=== PATIENT | female | born 1950 | race Caucasian/White ===

== ENCOUNTER 2017-01-09 11:55 | Inpatient (IN) | payer MEDICARE ==
[~2017-01-09] VITALS: Ht 152.4 cm; Wt 107.1 kg
--- NOTE | ~2017-01-09 | DS ---
PATIENT'S NAME: LG CALDERÓN [facility] AGE: 66 Y [address] ROOM: [address] [place], [place] [address] LOCATION: [facility] ADMIT DATE: 01/09/2017 Discharge Summary DISCHARGE DATE: 01/11/2017 FAMILY PHYSICIAN: Pedro Stephen MD ATTENDING PHYSICIAN: Pedro Stephen PRINCIPAL DIAGNOSIS: Left lower lobe pneumonia. SECONDARY DIAGNOSES: 1. Viral pharyngitis. 2. Essential hypertension. 3. Hyperlipidemia. 4. Hypothyroidism. 5. Morbid obesity. 6. Obstructive sleep apnea, on CPAP. HISTORY OF PRESENT ILLNESS: Lg Calderón, a 66-year-old female, presented to [facility] on 01/09/2017 for pleuritic chest pain and shortness of breath. Her history was complicated by a recent left foot cellulitis, diagnosed on 01/04/2017 in clinic, for which she was taking Cefadroxil. Vitals at the clinic were, a blood pressure of 150/86, heart rate of 102, respirations of 28, temperature of 101.4 degrees Fahrenheit, and oxygen saturation of 93%. With her recent infection with subsequent bedrest, a CT with PE protocol was ordered. The outpatient CT ruled out PE, but showed beginning signs of left lower lobe infiltrate and atelectasis, suggesting pneumonia. HOSPITAL COURSE: She was admitted to [facility] and started on IV levofloxacin. Her temperature and symptoms improved. On hospital day #2, she complained of dysphagia and odynophagia, which improved significantly after a dose of prednisone. On hospital day #2, her presenting symptoms resolved, and she was discharged to home. HOME MEDICATIONS: 1. Acetaminophen 1200 mg every night at bedtime for arthritis. 2. Cefadroxil 1000 mg twice daily for 10 days, started on 01/04/2017, for left foot cellulitis. 3. Estradiol 0.5 mg. 4. Hydralazine 50 mg twice daily. 5. Levothyroxine 100 mcg. 6. Metoprolol 50 mg. 7. Quetiapine fumarate 150 mg at bedtime. 8. Tramadol 100 mg at bedtime. 9. A 50 mg of tramadol as needed for pain. 10. Ibuprofen 800 mg as needed for pain. PATIENT'S NAME: LG CALDERÓN [facility] AGE: 66 Y [address] ROOM: [place] [address] LOCATION: [facility] ADMIT DATE: 01/09/2017 Discharge Summary DISCHARGE DATE: 01/11/2017 FAMILY PHYSICIAN: Pedro Stephen MD ATTENDING PHYSICIAN: Pedro Stephen 11. Medrol Dosepak. 12. Levofloxacin 750 mg once daily, 5 tablets for a total of 7 days. CONDITION: Good. DISPOSITION: Lg was discharged home with followup with her PCP, Dr. Pedro Stephen, in 7 to 10 days. Honestly, her symptoms are mostly caused by a virus, but she was sent home on antibiotics just in case. EPHRAIM LIZAMA, MEDICAL STUDENT FOR PEDRO STEPHEN MD AT/modl /[id number] d: 01/11/17901 t: 01/30/17 1449, DISCHARGE SUMMARY
[~2017-01-09 11:55] MED LIST: ADVIL200 MG PO; APRESOLINE50 MG PO; ARTHRITIS PAIN650 M1 PO; CEFTIN500 MG PO; DELTASONE20 MG PO; ESTRACE0.5 MG PO; LEVOTHROID (S125 MCG PO; SEROQUEL100 MG PO; TOPROL XL 5050 MG PO; ULTRAM50 MG PO
--- NOTE | 2017-01-09 13:42 | NUR ---
ADMITTED FROM RADIOLOGY PER WHEEL CHAIR. PT STATES SHE WAS ADMITTED FOR A POSSIBLE PULMONARY EMBOLISM IN THE END OF SEPTEMBER AND HAS NOT FELT GOOD SINCE THEN. SHE STATES SHE HAD A CT TODAY FOR R/O PE AND WAS TOLD SHE HAS PNEUMONIA. PT STATES SHE HAS BEEN SHORT OF BREATH WITH AND WITHOUT ACTIVITY, HAS HAD A HARSH COUGH WITH NO SPUTUM. PT STATES SHE HAS HAD A POOR APPETITE BUT HAS BEEN EATING BECAUSE SHE KNOW SHE HAS TO. IS ASKING FOR SOME BOTTLED WATER TO DRINK, INFORMED HER THAT WE DO NOT HAVE ANY ORDERS FROM A PHYSICIAN YET. PT ORIENTED TO ROOM, SURROUNDINGS AND PLAN OF CARE.
[2017-01-09] MEDS ORDERED: TURMERIC500 MG PO (13:57)
[2017-01-09] MEDS ORDERED: TRAMADOL HCL50 MG PO (14:00)
[2017-01-09] MEDS ORDERED: DURICEF (NON-500 MG PO (14:00)
[2017-01-09] MEDS ORDERED: ATIVAN 0.5MG0.5 MG PO (14:01)
--- NOTE | 2017-01-09 16:15 | NUR ---
Significant Event: A/O. VSS on RA. C/O chronic shoulder pain for which she takes ultram for. SOB with activity. Levaquin and D5 1/2 NS infusing to L) upper arm IV. Up with SBA. CT neg for PE. Follow up:
[2017-01-10 06:05] LABS: BASOPHIL % 0.3 %; EOSINOPHIL % 0.5 %; HEMATOCRIT 31.1 % (33.0-46.0); HEMOGLOBIN 10.3 g/dL (10.0-15.0); IMMATURE GRANULOCYTE % 0.5 %; LYMPHOCYTE # 0.5 K/uL (0.8-4.0); LYMPHOCYTE % 13.7 %; MCH 29.3 pg (27.0-34.0); MCHC 33.1 gm/dL (32.0-36.5); MCV 88.6 fl (83.0-98.0); MONOCYTE # 0.3 K/uL (0.0-1.0); MONOCYTE % 7.1 %; MPV 9.8 fl (9.4-12.4); NEUTROPHIL # (ANC) 2.9 K/uL (1.8-7.8); NEUTROPHIL % 77.9 %; NRBC % 0 /100WBC (0-0.00); PLATELET COUNT 181 K/uL (150-450); RBC 3.51 M/uL (3.50-5.50); RDW-CV 15.3 % (11.9-14.6); WBC 3.7 K/uL (4.0-11.0)
[2017-01-10 06:17] LABS: ANION GAP 10.7 (10.0-19.0); BLOOD UREA NITROGEN 18 mg/dL (6-24); CALCIUM 8.5 mg/dL (8.5-10.5); CHLORIDE 105 mMol/L (96-110); CO2 22 mMol/L (22-32); CREATININE 0.7 mg/dL (0.5-1.1); ESTIMATED GFR (MDRD EQUATION) > 60; POTASSIUM 3.7 mMol/L (3.7-5.1); SODIUM 134 mMol/L (135-145)
--- NOTE | 2017-01-10 06:50 | NUR ---
Significant Event: Patient is alert/oriented x3. Has been afebrile throughout the night. Other vital signs are stable. Continues on room air with O2 sats mid 90's. Wears CPAP on room air at night. Has occasional dry cough, lung sounds have been clear/diminished all night. Patient complained of restlessness throughout the night, despite Seroquel, Tramadol, Tylenol, and Ativan administration. Patient stated "I wanted the doctor to give me something stronger for sleep". Offered patient aromatherapy, but she refused. Around 0500, patient's IV began to leak. Attempted to start new IV, but without any success. Patient did have a very promising site on her hand, but she stated "if you put an IV on my hands, I'll just take it right out.". Explained to patient the need for IV for IV fluids and IV antibiotics but she continued to refuse having an IV inserted on her hand, even if unable to find another location for it. Follow up: Continue to monitor per plan of care.
[2017-01-10 12:58] LABS: BILIRUBIN URINE NEGATIVE (NEGATIVE); BLOOD URINE 10 /UL (NEGATIVE); COLOR URINE YELLOW (YELLOW); GLUCOSE URINE NEGATIVE (NEGATIVE); KETONE URINE NEGATIVE (NEGATIVE); LEUKOCYTES URINE 25 /UL (NEGATIVE); NITRITE URINE NEGATIVE (NEGATIVE); PROTEIN URINE 100 mg/dL (NEGATIVE); TURBIDITY URINE CLEAR (CLEAR); UROBILINOGEN URINE 1 mg/dL (NORMAL)
[2017-01-10 13:04] LABS: BACTERIA URINE RARE (NEGATIVE); RBC URINE RARE #/HPF (NEGATIVE); WBC URINE RARE #/HPF (NEGATIVE)
--- NOTE | 2017-01-10 16:13 | NUR ---
Significant Event: A/O. VSS on RA. C/O "lump in throat" and states "feels like throat is closing". No stridor or difficulty breathing unless shes walking and becomes SOB. Benedryl, solumedrol, and flonase started. Speech consult for tomorrow. Patient states that at this time her throat feels better. Follow up: cont plan of care
--- NOTE | 2017-01-11 07:19 | NUR ---
Significant Event: Patient is alert/oriented x3. Vital signs stable. Continues on room air. IV Solu-medrol and IV Benadryl given last night for throat discomfort, patient reported relief. Trazodone given last night, patient did sleep better last night. Continues on IV Levaquin and D5 1/2 NS at 75 mL/hr. Follow up: Continue to monitor per plan of care.
[2017-01-11] MEDS ORDERED: FLONASE 50 MCG/16 GM NOSE (12:28)
[2017-01-11] MEDS ORDERED: DESYREL100 MG PO (12:40)
[2017-01-11] MEDS ORDERED: MEDROL4 M1 (12:42)
[2017-01-11] MEDS ORDERED: LEVAQUIN 750 M750 MG PO (12:42)
--- NOTE | 2017-01-11 13:53 | NUR ---
Introduced self and care management services to patient. 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 Lives in [place] with spouse. Going home today, denies concerns about going home on discharge.
== END 2017-01-11 14:43 | disposition disaster alternative care site (69) | DRG 194 ==
LOC: GRAD 11:55 → GPCU 12:50
PROVIDERS: ADMIT Obstetrics & Gynecology Obstetrics
DX: J18.9 Pneumonia, unspecified organism (principal); L03.116 Cellulitis of left lower limb; I10 Essential (primary) hypertension; Z68.42 Body mass index [BMI] 45.0-49.9, adult; J98.11 Atelectasis; J02.8 Acute pharyngitis due to other specified organisms; B97.89 Other viral agents as the cause of diseases classified elsewhere; G47.33 Obstructive sleep apnea (adult) (pediatric); E78.5 Hyperlipidemia, unspecified; E03.9 Hypothyroidism, unspecified; E66.01 Morbid (severe) obesity due to excess calories; B96.89 Other specified bacterial agents as the cause of diseases classified elsewhere
CPT/HCPCS: J1200; J1650; J1956; J2930; Q9967

== ENCOUNTER 2017-03-30 08:39 | Inpatient (IN) | payer MEDICARE ==
[~2017-03-30] VITALS: Ht 152.4 cm; Wt 99.8 kg
--- NOTE | ~2017-03-30 | CON ---
PATIENT'S NAME: LG DON [facility] AGE: 66 Y [address] ROOM: [address] [place], [place] [address] LOCATION: [facility] ADMIT DATE: 03/30/2017 Consultation DISCHARGE DATE: FAMILY PHYSICIAN: Paramjit Fermin MD ATTENDING PHYSICIAN: Paramjit Fermin DATE OF CONSULTATION: 03/30/2017 REFERRING PHYSICIAN: ARIELLE BARRAZA MD HISTORY OF PRESENT ILLNESS: Dr. Fermin has requested that I provide an inpatient consultation on this 66-year-old female, whom he is admitting from the emergency room. I have been asked to evaluate her left knee. Her past orthopedic history is significant for having undergone a primary left total knee arthroplasty with Dr. Tono Melendez approximately one decade ago. Concerns have been raised in the emergency room regarding the potential for a periprosthetic infection of the left knee. Dr. Fermin has asked me to aspirate the knee and to determine the source of the patient's knee discomfort. The patient has been reasonably pleased with the outcome of her left knee replacement over the past decade. She states that her left knee started "acting up" intermittently approximately 1 year ago. These intermittent flare- ups have typically responded favorably to ice, rest, elevation, and ibuprofen. She has been experiencing intermittent idiopathic fevers over the last 6 months. Difficulties commenced in September. At that time, she was hospitalized overnight after an elevated D-dimer was found. Workup for DVT and pulmonary embolism was negative. She was treated for pneumonia in December (admitted for intravenous antibiotics). She was treated with oral antibiotics (Augmentin) for a putative sinus infection in February. She has been experiencing vague sense of fatigue over the last 6 months. She has unintentionally lost almost 50 pounds over the last 6 months. She states that she weighed 278 pounds at [place] and 230 pounds recently. She had transient right upper quadrant discomfort a few months ago, which felt like a "strained rib." She states that she twisted her knee a few days ago well exiting a vehicle. There was no associated fall. Her knee felt like it was "throbbing" before she went to bed last night. Her knee pain was exquisite this morning at 5 a.m. when she got up to go to the bathroom. She states that her knee "hurt like thunder." In the emergency room, she has been found to be pancytopenic. Erythrocyte sedimentation rate and C-reactive protein levels have been noted to be PATIENT'S NAME: LG DON [facility] AGE: 66 Y [address] ROOM: [address] [place] [id number] LOCATION: [facility] ADMIT DATE: 03/30/2017 Consultation DISCHARGE DATE: FAMILY PHYSICIAN: Paramjit Fermin MD ATTENDING PHYSICIAN: Paramjit Fermin markedly elevated. Allergies, medications, and past surgical history are otherwise as specified on her chart. PHYSICAL EXAMINATION: GENERAL: She is alert, oriented, and in no distress. RESPIRATIONS: Regular and nonlabored. EXTREMITIES: Left knee demonstrates a large effusion. There is no erythema or abnormal warmth at the left knee, but there is significant generalized tenderness at the left knee. There is a well-healed midline longitudinal scar at the left knee. There is 5 mm of medial collateral ligament laxity. There is 4 mm of lateral collateral ligament laxity. The knee hyperextends to approximately 12 degrees. Flexion of the left knee is limited to 120 degrees by pain. There is a 30-degree extensor lag at the left knee. There is markedly increased anteroposterior translation of the left knee and a grade 2 posterior drawer. RADIOGRAPHS: Left knee radiographs demonstrate significant anterior subluxation of the tibia with respect to the femur. There is no fracture. There is no lytic lesion. There is a well-fixed posterior cruciate ligament retaining total knee arthroplasty. IMPRESSION: Potential periprosthetic infection of the left knee. Left knee ligamentous insufficiency, status post total knee arthroplasty. Six months history of lethargy, fatigue, intermittent idiopathic fevers, and unintentional weight loss (potential occult malignancy). RECOMMENDATIONS: I recommended aspiration of the knee. I strongly suspected septic arthritis prior to aspirate the knee. After aspirating the knee, however, it would appear that the patient has an acute hemarthrosis associated with her chronic left knee ligamentous laxity. It is the fact that she is thrombocytopenic as predisposed her to hemorrhaging acutely into the knee. There is an outside chance that she has septic arthritis as well. Cultures are pending. We will commence empiric antibiotics. I have recommended a knee immobilizer. The knee may need to be revised due to its ligamentous laxity at a later date. However, the patient needs a complete workup for her pancytopenia and unintentional weight loss. It is conceivable that she has an occult hematologic malignancy. I have ordered a serum protein electrophoresis. I have expressed my concerns regarding the potential for an underlying systemic illness (possible hematologic malignancy) with Dr. Fermin. I PATIENT'S NAME: LG DON [facility] AGE: 66 Y [address] ROOM: [address] [address] LOCATION: [facility] ADMIT DATE: 03/30/2017 Consultation DISCHARGE DATE: FAMILY PHYSICIAN: Paramjit Fermin MD ATTENDING PHYSICIAN: Paramjit Fermin will follow the patient along in the hospital. No surgery is planned on the left knee presently. I informed the patient and her that I was concerned regarding the potential for an occult malignancy as well. MD FLAVIO VILLAW/modl /[id number] CC: Paramjit Fermin MD d: 03/31/17 0257 t: 04/07/17 1744, CONSULTATION REPORT
--- NOTE | ~2017-03-30 | DS ---
PATIENT'S NAME: LG DON [facility] AGE: 66 Y [address] ROOM: [address] [place], [place] [address] LOCATION: [facility] ADMIT DATE: 03/30/2017 Discharge Summary DISCHARGE DATE: 04/07/2017 FAMILY PHYSICIAN: Pedro Stephen MD ATTENDING PHYSICIAN: Pedro Stephen DISCHARGE DIAGNOSES: 1. ESBL E. coli urinary tract infection with 7 days of IV Invanz or ertapenem daily. 2. Diffuse pancytopenia for which she had a bone marrow biopsy and early prelim suggests Waldenstrom macroglobulinemia, which is a type of B-cell lymphoma. 3. Presumed diastolic congestive heart failure acute. 4. Morbid obesity. 5. Chronic fatigue, which is probably secondary to her pancytopenia and etiology behind that. 6. Obstructive sleep apnea on CPAP. 7. Hypothyroidism for which she was mildly still hypothyroid and we had to adjust her dose. 8. Hypertension, which has been well controlled. 9. History of depression and anxiety disorders that are well controlled on her current medication regimen. HISTORY OF PRESENT ILLNESS: The patient is an elderly 66-year-old female, who just really has not felt well over about the last 6 to 7 months. She was hospitalized back in December. She had an elevated D-dimer. Had a CT PE protocol, which did suggest a small pneumonia and we admitted her and treated her at that time. She had not been feeling well for a while prior to that and she states she has never really felt fine since. She has been treated for a couple of sinus infections in the meantime also, but honestly I think they were somewhat of a soft call. She then had a history of prior to admission of having twisted her knee when she was standing up out of her car, but she said it really did not feel too bad. The morning of admission, when she woke up, she had severe pain and swelling of the knee. There was concern about a possible septic joint, so she went ahead and we obtained blood cultures. Dr. Meza aspirated her left knee and it really just showed more of a traumatic bloody effusion suggestive of hemarthrosis. She does have a fair amount of knee laxity from her previous total knee replacement, so he wanted the patient to have a knee brace on whenever weightbearing. From the standpoint of her knee, she has done well. We went ahead and admitted the patient due to her fevers and fatigue and to rule out a septic arthritis. The patient was initially started on Ancef. We obtained blood and urine cultures. Her urine culture grew out two E. coli organisms, one of which was ESBL. She was started on IV ertapenem at that time, which is Invanz 1 g IV daily and she has received a total of 7 days. For the most part, her fevers have gone away, PATIENT'S NAME: LG DON [facility] AGE: 66 Y [address] ROOM: [address] [address] LOCATION: [facility] ADMIT DATE: 03/30/2017 Discharge Summary DISCHARGE DATE: 04/07/2017 FAMILY PHYSICIAN: Pedro Stephen MD ATTENDING PHYSICIAN: Pedro Stephen although she has had a couple of low-grade fevers. She did have repeat blood and urine cultures and they were all negative. Her blood cultures were negative initially also. Due to her pancytopenia, we went ahead and did a workup, which included a bone marrow biopsy. Preliminary results do suggest some Waldenstrom macroglobulinemia, which is being further evaluated by pathology. She also had a workup for the intermittent fevers. Besides her culture, she did have initially transthoracic echo, which was essentially normal. Then with her next spike which was on a Wednesday, we did go ahead and set her up and on Wednesday, 04/05, she had a MAXIMO and that was also the day she had the bone marrow biopsy. Since that time, she has continued to make progress and is feeling better and better. She still feels chronically tired, but overall feels better. She did have a low-grade temperature on the night prior to discharge, but her blood counts have remained stable and she overall is feeling better and she has completed her 7-day course and has had negative repeat cultures. Her low-grade fevers could be potentially related to her pancytopenia and oncologic problem. She does wish to go home. We will go ahead and plan on dismissing her to home with followup with me next week for repeat CBC, BMP, CRP, and BNP. We will have them check with Dr. Carrillo when he wants her to follow up with Oncology for discussion of the finals of the bone marrow report. DISCHARGE MEDICATIONS: 1. Acetaminophen 650 mg every 4 to 6 hours as needed. 2. Estradiol 0.5 mg daily at bedtime. 3. Fluticasone 2 squirts each nostril daily. 4. A new medicine is furosemide 40 mg daily p.o. q.a.m. for more of a presumed diastolic dysfunction with an elevated proBNP. Her systolic function is normal on echo. 5. She is also on hydralazine 50 mg twice daily. 6. Ibuprofen 800 mg in the mornings. 7. We increased her levothyroxine from 100 mcg to 125 mcg due to mildly elevated TSH. 8. She continues on her metoprolol-XL 50 mg daily. 9. Her Seroquel 150 mg daily. 10. Tramadol 50 mg 2, three times a day as needed. 11. Trazodone 50 mg at bedtime as needed. 12. Lorazepam 0.5 mg t.i.d. p.r.n. for anxiety. As mentioned, follow up is with me in about 5 to 7 days and Oncology per Dr. Carrillo's instructions. PEDRO STEPHEN MD PATIENT'S NAME: LG DON [facility] AGE: 66 Y [address] ROOM: [place] [address] LOCATION: [facility] ADMIT DATE: 03/30/2017 Discharge Summary DISCHARGE DATE: 04/07/2017 FAMILY PHYSICIAN: Pedro Stephen MD ATTENDING PHYSICIAN: Pedro Stephen/miguel a /[id number] d: 04/08/17 0022 t: 04/28/17 1116, DISCHARGE SUMMARY
--- NOTE | ~2017-03-30 | ENPV ---
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 Procedure Type of Study: Veins:Lower Extremities DVT Study, Lower Extremity Left. Indications for Study:Pain in Limb and Swelling of Limb. Patient Status:STAT. Study Location:ER. Technical Quality:Adequate visualization. Velocities are measured in cm/s ; Diameters are measured in cm Right Lower Extremities DVT Study Measurements Right 2D and Doppler Measurements + + + + +------+------+ + !Location !Visualized!Compressibility!Thrombosis!Signal!Reflux!Reflux ! ! ! ! ! ! ! !(sec) ! + + + + +------+------+ + !Common !Yes !Yes !None !Phasic!No ! ! !Femoral ! ! ! ! ! ! ! + + + + +------+------+ + Left Lower Extremities DVT Study Measurements Left 2D and Doppler Measurements + + + + +------+------+ + !Location !Visualized!Compressibility!Thrombosis!Signal!Reflux!Reflux ! ! ! ! ! ! ! !(sec) ! + + + + +------+------+ + !GSV Thigh !Yes !Yes !None !Phasic!No ! ! + + + + +------+------+ + !Common !Yes !Yes !None !Phasic!No ! ! !Femoral ! ! ! ! ! ! ! + + + + +------+------+ + !Prox !Yes !Yes !None !Phasic!No ! ! !Femoral ! ! ! ! ! ! ! + + + + +------+------+ + !Mid Femoral!Yes !Yes !None !Phasic!No ! ! + + + + +------+------+ + !Dist !Yes !Yes !None !Phasic!No ! ! !Femoral ! ! ! ! ! ! ! + + + + +------+------+ + !Popliteal !Yes !Yes !None !Phasic!No ! ! + + + + +------+------+ + !Gastroc !Yes !Yes !None !Phasic!No ! ! + + + + +------+------+ + !PTV !Yes !Yes !None !Phasic!No ! ! + + + + +------+------+ + !Peroneal !Yes !Yes !None !Phasic!No ! ! + + + + +------+------+ + Signature dtt: JUAN CRAIN dtricardo: 03/30/17 0952 Physician Self Edit
--- NOTE | ~2017-03-30 | HP ---
PATIENT'S NAME: LG DON [facility] AGE: 66 Y [address] ROOM: [address] [place], [place] [address] LOCATION: [facility] ADMIT DATE: 03/30/2017 History & Physical DISCHARGE DATE: FAMILY PHYSICIAN: Paramjit Fermin MD ATTENDING PHYSICIAN: Paramjit Fermin DATE OF SERVICE: CHIEF COMPLAINT: Acute onset of severe left knee pain. HISTORY OF PRESENT ILLNESS: The patient is a 66-year-old female, who is well known to me. She has actually had kind of a tough course and has really not felt well over the last 6 to 7 months. Just feeling fatigued. She kind of had a chronic hacky cough. She was hospitalized recently I think back in December and had a CT scan PE protocol, which did show a very small pneumonia which was treated. She states she unfortunately has not continued to feel well since that time. She was even feeling poorly ahead of that time. She does complain of a chronic hacky cough and just feeling real tired and fatigued. On , she was getting out of the car and states that she did not really have her legs squared upright and when she got out, she twisted her left knee and it has been a little bit sore ever since that time. When she woke up this morning, though she had severe left knee pain and it felt like she could not even hardly walk on it. She called Dr. Meza's office and was actually transported to the emergency room where she was evaluated. She had blood work which showed elevated CRP and sedimentation rate. She had a pancytopenia with a left shift, normal procalcitonin, and mildly elevated lactate. Venous Doppler was negative and CT PE protocol was negative. Dr. Meza will be seeing the patient and evaluating her knee. ALLERGIES: INCLUDE: DEMEROL, ERYTHROMYCIN, MORPHINE, PERCODAN, AND ZITHROMAX. CURRENT MEDICATIONS: Include: 1. Acetaminophen 650, 2 tablets at bedtime. 2. Advil 200 mg 4 tablets daily. 3. She just recently finished up Augmentin 875 b.i.d. for 10 days for sinus infection. 4. She is on Asmanex 100 mcg 2 puffs twice daily. 5. Estrace 0.5 mg daily. 6. Fluticasone 2 squirts each nostril daily. 7. Hydralazine 50 mg b.i.d. 8. Levothyroxine 100 mcg daily. PATIENT'S NAME: LG DON [facility] AGE: 66 Y [address] ROOM: [address] [place], [place] [address] LOCATION: [facility] ADMIT DATE: 03/30/2017 History & Physical DISCHARGE DATE: FAMILY PHYSICIAN: Paramjit Fermin MD ATTENDING PHYSICIAN: Paramjit Fermin 9. Lorazepam 0.5 mg t.i.d. p.r.n. 10. Metoprolol succinate 50 mg daily. 11. Seroquel 100 mg 1-1/2 tablets at bedtime. 12. Tramadol 50 mg, 2 tablets q.i.d. p.r.n. PAST MEDICAL HISTORY: Chronic health problems include: 1. History of asthma. 2. Hypertension. 3. Hyperlipidemia, which is well controlled off and is not on medications. 4. Hypothyroidism. 5. Morbid obesity. 6. Obstructive sleep apnea, on CPAP. 7. Postmenopausal status. PAST SURGICAL HISTORY: Principal procedures: 1. The patient has had an adenoidectomy in 1963. 2. Appendectomy in 1972. 3. Bladder suspension in 1989. 4. Left breast biopsy on 11/16/1996 and a right breast biopsy on 10/04/2000, 06/18/2014. 5. She has had a carpal tunnel done on both the left and right hand. 6. She has had cataract surgery before. 7. Cholecystectomy in 1997. 8. She had previous DEXA scan. 9. She had a hysterectomy in 1989. 10. Left knee replacement in 2005, right knee replacement in 2006, and prior to that, she has had previous arthroscopic procedures done on her knees by Dr. Melendez. SOCIAL HISTORY: She drinks on a rare basis. Caffeine about 2 cups of coffee a day. She has never been a smoker. No illicit drug use. She does wear her seat belts. 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 She is in 1978, has four kids, 15 grand kids, and 4 great grandkids. REVIEW OF SYSTEMS: GENERAL: The patient just states she has felt fatigued for probably the last 7 to 8 months. HEENT: Had intermittent sinus infection. Also history of allergies. LUNGS: Does complain of chronic cough, not improved with the recent antibiotics. GASTROINTESTINAL: Negative. PATIENT'S NAME: LG DON [facility] AGE: 66 Y [address] ROOM: [place] [address] LOCATION: [facility] ADMIT DATE: 03/30/2017 History & Physical DISCHARGE DATE: FAMILY PHYSICIAN: Paramjit Fermin MD ATTENDING PHYSICIAN: Paramjit Fermin GENITOURINARY: Negative. MUSCULOSKELETAL: Just the severe left knee pain that just started this morning. It was milder since she twisted it last . PHYSICAL EXAMINATION: GENERAL: Shows an alert female who is currently resting comfortably on the hospital [facility]. VITAL SIGNS: She is afebrile. Vital signs are stable. Her temperature is actually low-grade at 99.1. She has been borderline tachycardic I should state. HEENT: Normal. NECK: Supple. No adenopathy. LUNGS: Clear. HEART: Regular rate and rhythm without murmurs, rubs, or gallops. GASTROINTESTINAL: Abdomen is morbidly obese. Bowel sounds positive. Nontender. Nondistended. EXTREMITIES: Her left knee shows healed previous total knee arthroplasty scar as does her right. On her left knee though there is some slight swelling and she has tenderness along the joint line with palpation. It is slightly warm to the touch. There is no real redness. Her distal extremities show good peripheral pulses. LABORATORY DATA: The patient's EKG shows sinus rhythm with no acute changes. CT PE protocol, by verbal report, was negative. Her uric acid level is 2.7. Her chemistry panel shows a sodium of 139, potassium 3.8, chloride 108, CO2 of 23, glucose 120, calcium 8.2, BUN 11, creatinine 0.7, total protein 7, albumin 3.2, total bilirubin is 0.5, alkaline phosphatase 83, AST is 27, ALT is 20, and EGFR is greater than 60. Her troponin I is less than 0.040. Her CRP is elevated at 3.44. Her proBNP is mildly elevated at 1436. Her lactate was mildly elevated at 1.8. Her D-dimer was elevated at 11.9. Her procalcitonin was less than 0.05. Her CBC showed a white count of 2.5, hemoglobin of 10.0, hematocrit 29.9, and platelet count 138,000. Her indices were essentially normal. Her differential showed 57% segs, 12% bands, 21% lymphocytes, and 8% monocytes. Her ESR was 45 with a PTT of 32, and a PT of 11.7 with an INR of 1.11. Her urinalysis showed 30 of protein, but otherwise was negative other then 10-20 epithelials. ASSESSMENT: 1. Acute left knee pain with history of recent twisting injury last when getting out of the car, but now suddenly worse today. 2. Low-grade fever with elevated sedimentation rate and CRP. Concerned about the possibility of a septic joint of that left knee. 3. Fatigue that has been going on for 6 to 8 months. 4. Chronic cough with recent CT scan for pulmonary embolism protocol today being normal with her history of elevated D-dimer. PATIENT'S NAME: LG DON [facility] AGE: 66 Y [address] ROOM: [place] [address] LOCATION: [facility] ADMIT DATE: 03/30/2017 History & Physical DISCHARGE DATE: FAMILY PHYSICIAN: Paramjit Fermin MD ATTENDING PHYSICIAN: Paramjit Fermin 5. Pancytopenia. 6. History of hypertension. 7. History of hyperlipidemia, markedly improved on recent test from December. 8. Obstructive sleep apnea, on CPAP. PLAN: I discussed the patient with Dr. Mack and Dr. Meza is actually going to see the patient. Also there was concern that there could be an early septic joint here. I am not sure if they are going to just aspirate or take her to the OR at this point in time, and aspirate and consider washing it out. No matter what will need to get good cultures and also we should check probably to make sure there were no signs of crystal disease. From the standpoint of her pancytopenia, we will monitor her blood counts. This may need to be worked up further especially with her complaints of about 6-month history of tiredness or fatigue. I will review her blood counts from the clinic. She did not have a CBC when we saw her for a recent physical in December. She does have the known hypothyroidism, but her most recent TSH in December was normal. We will see how things go. We do have her on some IV fluids. We will hold off on antibiotics until they are able to get joint fluid for evaluation. After that we will proceed with antibiotics. She does have a history of depression. We will continue her current medications. I will continue to follow the patient along. MD EARNEST FLORES/miguel a /[id number] D: [id number] T: 353 HISTORY & PHYSICAL
--- NOTE | ~2017-03-30 | ECHO ---
Transesophageal Echocardiography Report (MAXIMO) Demographics Patient Name LG DON Date of Study 04/05/2017 Patient Number [id number] Visit Number [id number] Date of 1950 Room Number G3311 Gender Female Number Age 66 year(s) Referring Jeny Alvarado Public Services Librarian Delon Kumar RDCS, Physician RVT Physician Interpreting Preeti Pal[employer]ox Restaurant Crew Physician Supervising Ordering Jeny Alvarado MD/MLP Physician MD Nurse Stress Dental Appliance Repairer Conclusions Summary Normal LV/RV size and systolic function. LVEF 60%. No evidence of valvular vegetations noted. MV/TV/AV and PV are well visualized and grossly normal. Trace MR. Trace TR. No significant plaque noted in the ascending aorta. The interatrial septum is intact and there is no evidence of pfo by color flow. Procedure Type of Study MAXIMO procedure Procedure Date Date: 04/05/2017 Start: 09:47 AM Study Location: Inpatient Portable Technical Quality: Adequate visualization Indications:Fever of unknown origin. Appropriate Use Criteria: 9 Patient Status: Routine HR: 91 bpm BP: 152/82 mmHg O2 Saturation: 95 % MAXIMO Performed By: the attending and the foreign exchange trader Type of Anesthesia: Moderate sedation Findings Miscellaneous The patient was brought to the [facility] lab in the fasting state after informed consent was obtained in the written and verbal format. Bite block was placed by me. Once adequate anesthesia was obtained with anesthesia guidance with propofol sedation the MAXIMO probe was placed by me down into the stomach. It was pulled back slightly after a few views were obtained in the transgastric level to the transesophageal position where the majority of the case was carried out. At the end of the case the probe was rotated and withdrawn. Patient tolerated the procedure well. Contractility Score LV regional wall motion:(0-Non visualized 1-Normal 2-Hypokinesis 3-Akinesis 4-Dyskinesis 5-Aneurysm) Signature dtt: RICHI ESTRELLA dtd: 04/05/17 0947 Physician Self Edit
--- NOTE | ~2017-03-30 | ECHO ---
Transthoracic Echocardiography Report (TTE) Demographics Patient Name LG DON Date of Study 03/31/2017 L Patient Number [id number] Visit Number [id number] Date of 1950 Room Number G3311 Gender Female Number Age 66 year(s) Referring Ropewalk Rope Maker Ángel RVT, [facility] Physician [place] Physician Interpreting Luis Moscoso MD Counseling Specialist Physician Supervising Ordering Jeny Alvarado MD, MD/P Physician Nurse Stress Screen Printing Loader Unloader Conclusions Contractility Score Summary Normal Left Ventricular contractility was noted. Summary The estimated left ventricular ejection fraction is 60-65%. Mild concentric left ventricular hypertrophy. Diastolic assessment reveals Grade I diastolic dysfunction. Procedure Type of Study TTE procedure:2D Echocardiogram, M-Mode, Doppler , Color Doppler. Procedure Date Date: 03/31/2017 Start: 02:52 PM Study Location: Inpatient Portable Technical Quality: Adequate visualization Indications:Fever of unknown origin. Appropriate Use Criteria: 9 Patient Status: Routine HR: 75 bpm BP: 150/68 mmHg M-Mode/2D Measurements LV Diastolic Dimension: 5.25 cm LV Systolic Dimension: 3.35 cm LV Septum Diastolic: 1.27 cm LV PW Diastolic: 1.05 cm AO Root Dimension: 2.4 cm Cardiac Output: 5.2 l/min AV Cusp Separation: 1.8 cm RV Diastolic Dimension: 1.23 cm LA volume: 59 ml LVOT: 2 cm RV Base: 2.8 cm LVOT VTI: 22.1 cm RV Mid: 2.56 cm LV Stroke volume: 69.39 ml TAPSE: 2.2 cm TDI-S': 21.2 cm/s Doppler Measurements AV Peak Velocity: 1.17 m/s MV Peak E-Wave: 1.03 m/s AV Peak Gradient: 5.48 mmHg MV Peak A-Wave: 1.23 m/s AV Mean Gradient: 7 mmHg MV E/A Ratio: 0.84 LVOT Peak Velocity: 0.68 m/s MV P1/2t: 74 msec E' Septal Velocity: 0.08 m/s A' Septal Velocity: 0.13 m/s E' Lateral Velocity: 0.1 m/s A' Lateral Velocity: 0.19 m/s Findings Left Ventricle Diastolic assessment reveals Grade I diastolic dysfunction. Right Ventricle Normal right ventricle structure and function. Left Atrium Normal left atrial size. Right Atrium Normal right atrial size. Mitral Valve Normal mitral valve structure and function. Aortic Valve Normal aortic valve structure and function. Tricuspid Valve Trivial tricuspid regurgitation by color Doppler. Pulmonic Valve Normal pulmonic valve structure and function. Pericardial Effusion No evidence of pericardial effusion. Pleural Effusion No evidence of pleural effusion. Contractility Score LV regional wall motion:(0-Non visualized 1-Normal 2-Hypokinesis 3-Akinesis 4-Dyskinesis 5-Aneurysm) Signature dtt: Danis Smith (cardio) dtd: 03/31/17 3594 Physician Self Edit
--- NOTE | ~2017-03-30 | CON ---
PATIENT'S NAME: LG CALDERÓN [facility] AGE: 66 Y [address] ROOM: [address] [place], [place] [address] LOCATION: [facility] ADMIT DATE: 03/30/2017 Consultation DISCHARGE DATE: FAMILY PHYSICIAN: Paramjit Fermin MD ATTENDING PHYSICIAN: Paramjit Fermin REFERRING PHYSICIAN: ARIELLE BARRAZA MD CHIEF COMPLAINT: This is a consult asked to evaluate patient with cytopenias. HISTORY OF PRESENT ILLNESS: Lg Calderón is a 66-year-old female. She was admitted to [facility] on 03/30/2017 for further evaluation of swollen knee. She had a previous history of bilateral knee replacements many years ago; however, the left knee had been given her issues over the last year. She had been careful with the walking. She did not want to aggravate that. However, on of last week, she was trying to get out of car, twisted, and felt the knee gave, immediately causing increased pain and discomfort, which progressed over the next few days. Wednesday morning, the pain was quite severe. She could not walk on it, which prompted her to be evaluated at [facility] ER and was admitted for further evaluation and treatment. Dr. Barraza performed drainage of the knee. She was initiated on antibiotics. A CT scan was performed per PE protocol, which was unremarkable for clots, and lower extremity Doppler was performed, which was negative as well. She was initiated on antibiotics, admitted, and noted at that time to have cytopenias with a white blood cell count 2.5 with a left shift with 12% bands, hemoglobin was 10 and platelets were 138,000. Today, her white cells are 2.9 with ANC of 2000, her hemoglobin 9.2, and platelets 152. Her MCV was 87.2, MCH was 28.7, MCHC 32.9, RDW was 17.4. Because of the cytopenias, we were asked to evaluate the patient for further evaluation. She was noted to have low-grade fevers reported since September, not felt good since that time, lost 50 pounds of weight during that time as well from a weight of 278 pounds to 230 pounds. She has had episodes of pneumonia and sinus infection, treated with antibiotics over the past several months. She feels that low-grade fever she has had did improve with the antibiotics, but she continued to feel run down and weak during that time. PAST MEDICAL HISTORY: Includes history of bilateral knee replacements; hypothyroidism; depression; hypertension; obesity; history of asthma; hyperlipidemia; obstructive sleep apnea, on CPAP. PAST SURGICAL HISTORY: She is status post appendectomy, status post bladder suspension, status post right and left breast biopsies, status post carpal tunnel surgery, status post bilateral cataract surgery. She is status post hysterectomy and status post PATIENT'S NAME: LG CALDERÓN [facility] AGE: 66 Y [address] ROOM: [address] [address] LOCATION: [facility] ADMIT DATE: 03/30/2017 Consultation DISCHARGE DATE: FAMILY PHYSICIAN: Paramjit Fermin MD ATTENDING PHYSICIAN: Paramjit Fermin cholecystectomy. HOME MEDICATIONS: 1. Tramadol. 2. Tylenol. 3. Metoprolol. 4. Hydralazine. 5. Estrace. 6. Levothyroxine. SOCIAL HISTORY: The patient is , lives in [place]. 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 She does not smoke. She does not drink or use illicit drugs. REVIEW OF SYSTEMS: Per HPI. Otherwise, unremarkable or negative in detail. PHYSICAL EXAMINATION: VITAL SIGNS: Blood pressure 149/66, pulse 82, respirations 18, temperature 98.7 degrees. GENERAL: The patient appears quite comfortable. No apparent distress. Covered with blankets. Sitting on the bedside. HEENT: Pupils are equal, round, reactive to light. Extraocular muscles are intact. Oral mucosa is moist and pink without erythema, without lesions. She does have a small ulceration at the buccal, at the gingival mucosa, anterior to the lower teeth. NECK: Without adenopathy as is the axillary region and groin. HEART: Regular rate and rhythm. No murmurs are appreciated. LUNGS: Clear to auscultation bilaterally without wheezing, without rhonchi. ABDOMEN: Obese, distended. No masses or organomegaly is appreciated, although difficult exam due to body habitus. EXTREMITIES: With 1+ lower extremity edema bilaterally. She is status post knee surgeries bilaterally with resulting surgical scars anterior to the knee. The left knee is warm to palpation compared to the right, but no erythema. LABORATORY DATA: As noted above. Today's CBC demonstrates a white blood cell count of 2.9, ANC of 2000, hemoglobin 9.2, and platelets 152. Her creatinine is 0.7. She did have urine culture demonstrating gram-negative rods and occult blood positivity. Serosal fluid from the left knee demonstrates a white blood cell count of 1658, rbc's 1,516,000 with 40% neutrophils, and Gram stain without bacteria. Culture at this point is negative. Her ferritin was 270, iron 54, TIBC 271, and a percent sat of 20%, her vitamin B12 was 281. CRP was 2.63 and ESR of 46. PATIENT'S NAME: GL CALDERÓN [facility] AGE: 66 Y [address] ROOM: [address] [address] LOCATION: [facility] ADMIT DATE: 03/30/2017 Consultation DISCHARGE DATE: FAMILY PHYSICIAN: Paramjit Fermin MD ATTENDING PHYSICIAN: Paramjit Fermin IMPRESSION AND PLAN: Lg Calderón is a 66-year-old female, admitted with hemarthrosis of the left knee, with history of low-grade fevers, and findings of pancytopenia. She is currently being treated with antibiotics for coverage for possible septic arthritis, although cultures at this point are not grown anything, and she is undergoing evaluation for possible endocarditis given the reported low- grade fevers in the past as well. She is noted to have occult blood positivity, and evaluation thus far demonstrated normal iron studies, vitamin B12, and ferritin. Folate is pending. Certainly, infectious etiologies may contribute to cytopenias, and we will follow up in the next couple of days to see if this would resolve with antibiotic coverage. If this does not resolve, then consideration for bone marrow biopsy would be reasonable, although on the differential, the white cells do not suggest abnormal cells but do suggest a left shift hinting at an infectious etiology, and we will follow with consideration of bone marrow biopsy if the cytopenias do not improve with antibiotic coverage in the next day or two. MD FELIPE VALLADARES/miguel a /[id number] d: 04/01/17 0119 t: 04/20/17 1241, CONSULTATION REPORT
--- NOTE | ~2017-03-30 | ER ---
PATIENT'S NAME: LG [facility] AGE: 66 Y [address] ROOM: [place] [address] LOCATION: [facility] ADMIT DATE: 03/30/2017 ER/Outpatient Report DISCHARGE DATE: FAMILY PHYSICIAN: Paramjit Fermin MD ATTENDING PHYSICIAN: Paramjit Fermin TIME OF ARRIVAL: 0839 hours. TIME SEEN: 0845 hours. IDENTIFICATION: A 66-year-old female. CHIEF COMPLAINT: Left knee injury. HISTORY OF PRESENT ILLNESS: The patient stepped out of the car and twisted her left knee on March 25. She has had bilateral knee replacements, per Dr. Melendez approximately 10 years ago. The patient has been seeing Dr. Meza though more recently for shoulder concerns. The patient has also been admitted twice since September for a couple of different infectious episodes and just finished another round of antibiotics, but it is not clear as to all the infectious etiologies. She had cellulitis and bronchitis or pneumonia. She had a very elevated D-dimer back in September or December admission. Currently today, she has a nonproductive cough. She has had no fever or chills. She has no abdominal pain. No nausea or vomiting, but she just describes not feeling well. Today, the patient is unable to bear weight on the left leg secondary to pain in her knee. ALLERGIES: MORPHINE, PERCOCET, DEMEROL AND Z-ALEXANDRA. SHE IS ALL INTOLERANT TO NO TRUE ALLERGY. CURRENT MEDICATIONS: She just finished Augmentin for fevers, Advil p.r.n., tramadol 100 mg t.i.d. p.r.n., Tylenol 650 mg at bedtime, metoprolol 50 mg daily, hydralazine 50 mg b.i.d., Estrace 0.5 mg at bedtime, and levothyroxine 100 mcg daily. PAST MEDICAL HISTORY: Hypothyroidism, depression, hypertension, obesity, chronic pain left shoulder, history of asthma, hyperlipidemia, obstructive sleep apnea on CPAP, and postmenopausal. PATIENT'S NAME: LG [facility] AGE: 66 Y [address] ROOM: [place] [address] LOCATION: [facility] ADMIT DATE: 03/30/2017 ER/Outpatient Report DISCHARGE DATE: FAMILY PHYSICIAN: Paramjit Fermin MD ATTENDING PHYSICIAN: Paramjit Fermin PAST SURGICAL HISTORY: Adenoidectomy, appendectomy, bladder suspension, left breast biopsy, right breast biopsy, carpal tunnel, bilateral cataract surgery, cholecystectomy, hysterectomy, and bilateral knee replacements. SOCIAL HISTORY: The patient is . She is disabled. 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 She lives here in [place]. Tobacco use, denies. Alcohol use, rare drug use denies. REVIEW OF SYSTEMS: All systems reviewed and negative other than what is noted in the HPI. PHYSICAL EXAMINATION: VITAL SIGNS: Height 5 feet 8 inches and weight 99.9 kg, blood pressure 182/81, pulse 90, respirations 20, temp 99.1, and sats 96% on room air. GENERAL: This is a 66-year-old female, in mild distress. She rates her pain 7/10. HEAD: Normocephalic, atraumatic. EYES: Pupils equal and reactive to light and accommodation. Extraocular movements intact. NOSE: Mucosa pink. No lesions or drainage. TMs not visualized. MOUTH: No lesions. Pharynx benign. NECK: Supple. No lymphadenopathy. No nuchal rigidity. LUNGS: Clear to auscultation. Breath sounds are equal. No rhonchi, wheezes, or rales. HEART: Regular rate and rhythm. ABDOMEN: Bowel sounds present. Soft, nondistended. No hepatosplenomegaly. No palpable masses. Nontender. SKIN: [place], warm, and dry. No lesions or rashes noted. NEURO: The patient is alert and oriented x4. Cranial nerves II through XII grossly intact. Motor strength 5/5 throughout. Sensation is intact to light touch. EXTREMITIES: Right lower extremity full range of motion. No deformities noted. Trace of edema. Left lower extremity trace of edema. No calf tenderness. Decreased range of motion secondary to pain. She does have some swelling about her knee. No redness. Minimal warmth, but quite a bit of pain with flexion and extension of that knee. IMAGING: X-ray of her left knee, knee prosthesis is present. No acute findings. Pending Radiology over-read. Doppler of that left lower extremity, negative for DVT. EKG; normal sinus rhythm at 83 beats per minute. No acute ST- elevation or depression. Uric acid 2.7. Sodium 139, potassium 3.8, chloride 108, CO2 of 23, BUN 11, creatinine 0.7, and blood sugar 120. Liver enzymes normal. Troponin I less than 0.040. CRP elevated at 3.44. ProBNP elevated PATIENT'S NAME: LG [facility] AGE: 66 Y [address] ROOM: [place] [address] LOCATION: [facility] ADMIT DATE: 03/30/2017 ER/Outpatient Report DISCHARGE DATE: FAMILY PHYSICIAN: Paramjit Fermin MD ATTENDING PHYSICIAN: Paramjit Fermin at 1436. Lactate slightly elevated at 1.8. D-dimer elevated at 11.90. Procalcitonin less than 0.05. Hemoglobin 10, which is stable. Hematocrit 29.9 and platelets 138, which diminished from 181 on January 10, white count 2.5 which is also diminished from 3.7 in December. White blood cell differential; 57% segs, 12% bands, 21% lymphocytes, and sed rate 45. INR 1.11. UA; specific gravity 1.010, pH 6.00, 2 white cells, 2 to 5 red cells, and 10 to 20 epithelial cells. Blood cultures x2 pending. Urine culture pending. CT scan; PE protocol: No CT findings of pulmonary embolus, deep and atelectasis at the lung bases. Otherwise, no acute findings per Dr. Wilson, radiologist. Left knee operation was performed per Dr. Meza, who evaluated the patient in consultation. Fluid was bloody fluid, 1658 white blood cell count, 1,516,000 red blood cells, 46% neutrophils. No crystals were identified. Joint aspirate fluid is cultured and pending. IMPRESSION AND PLAN: 1. Leukopenia. 2. Possible septic arthritis. Awaiting results per Dr. Meza. Antibiotics ordered per Dr. Meza. 3. Low-grade fever with elevated inflammatory markers. Could be secondary to septic joint. 4. Ongoing fatigue and general malaise and not feeling well. 5. Pancytopenia. 6. Chronic cough. 7. Congestive heart failure with elevated proBNP of 1436. 8. Hypertension. 9. Hyperlipidemia. 10. Obstructive sleep apnea. On CPAP. 11. Elevated D-dimer. No evidence of pulmonary embolism on CT scan. 12. Hypothyroidism. PLAN: For admission per Dr. Fermin, her primary care physician. He did evaluate the patient in the ER with Dr. Meza providing consultation, who also evaluated the patient in the emergency room. MD GHISLAINE HOOKS/miguel a /[id number] d: 03/30/17 2342 t: 04/11/17 0833, OUTPATIENT REPORT
--- NOTE | ~2017-03-30 | OR ---
PATIENT'S NAME: LG [facility] AGE: 66 Y [address] ROOM: [place] [address] LOCATION: [facility] ADMIT DATE: 03/30/2017 OR/Procedure Report DISCHARGE DATE: FAMILY PHYSICIAN: Paramjit Fermin MD ATTENDING PHYSICIAN: Paramjit Fermin SURGEON: Jaden Meza MD WATER POLLUTION SCIENTIST: DATE OF PROCEDURE: 03/30/2017 POSTOPERATIVE DIAGNOSIS: Left knee effusion (potential septic arthritis). POSTOPERATIVE DIAGNOSIS: Left knee hemarthrosis. PROCEDURE PERFORMED: Left knee aspiration. ANESTHESIA: Local. COMPLICATIONS: None. SPECIMEN: Synovial fluid for cell count, Gram stain, and routine cultures. INDICATION FOR PROCEDURE: Mrs. Calderón is a 66-year-old female whose past orthopedic history is significant for having undergone a left total knee arthroplasty with Dr. Tono Melendez approximately one decade ago. She presents with acute knee pain and swelling. Her erythrocyte sedimentation rate and C- reactive protein levels are both markedly elevated. Aspiration is indicated to determine the source of the effusion and to exclude the potential for septic arthritis-periprosthetic infection. The patient has been informed of the risk of iatrogenic infection, and informed consent has been granted. DESCRIPTION OF PROCEDURE: The patient was positioned supine in the emergency room. The lateral aspect of the left knee was prepped several times with DuraPrep. Subcutaneous tissues at the lateral aspect of the suprapatellar pouch were injected with 5 mL of lidocaine using a 25-gauge needle. The skin was re-prepped with DuraPrep, and a 20-gauge needle was advanced into the lateral aspect of the suprapatellar pouch 20 mL of fresh sanguinous fluid was aspirated. There was no purulence. There was my distinct impression after the aspiration that the patient has experienced an acute hemarthrosis. There is an outside chance that there is an associated infection. Fluid was sent for cell count, Gram stain, and routine cultures. The patient tolerated this well and there were no breaches in sterile technique. PATIENT'S NAME: LG [facility] AGE: 66 Y [address] ROOM: [place] [address] LOCATION: [facility] ADMIT DATE: 03/30/2017 OR/Procedure Report DISCHARGE DATE: FAMILY PHYSICIAN: Paramjit Fermin MD ATTENDING PHYSICIAN: Paramjit Fermin MD CHASITY VILLA/modl /[id number] d: 03/31/175 t: 04/07/17 1746, OPERATIVE SUMMARY
--- NOTE | ~2017-03-30 | CON ---
PATIENT'S NAME: LG [facility] AGE: 66 Y [address] ROOM: [id number] [place], [place] [address] LOCATION: [facility] ADMIT DATE: 03/30/2017 Consultation DISCHARGE DATE: FAMILY PHYSICIAN: Paramjit Fermin MD ATTENDING PHYSICIAN: Paramjit Fermin REFERRING PHYSICIAN: ARIELLE BARRAZA MD REASON FOR CONSULT: Fever of unknown origin and elevated proBNP. HISTORY OF PRESENT ILLNESS: This is a 66-year-old female with a history of obstructive sleep apnea, nonobstructive coronary artery disease with spasm of an artery per left heart catheterization with Dr. Shoemaker. She has not felt well for the last 6-7 months. She has been fatigued. She has complained of a dry hacky cough. She was hospitalized in December with pneumonia and had ruled out for pulmonary embolus via CT. She has not felt well since that time either. She reports that she was getting out of a car last and twisted her left knee and it has been sore ever since then. She had awakened with severe knee pain and therefore presented for further evaluation. She had blood work done at that time showing an elevated CRP and sedimentation rate as well as pancytopenia with a left shift and normal procalcitonin with a mildly elevated lactate. She did have a venous Doppler which was negative and also negative CT per PE protocol. Her knee was evaluated by Dr. Barraza and it was aspirated, but did not show any organisms in that knee. She denies complaints of chest discomfort, but has been more short of breath with minimal activity. She has also noticed increased lower leg edema. She has been wearing her CPAP faithfully. She denies any palpitations, lightheadedness, or dizziness. PAST MEDICAL HISTORY: 1. Obesity. 2. Obstructive sleep apnea, using CPAP. 3. Hyperlipidemia. 4. Nonobstructive coronary artery disease with artery spasm. 5. Osteoarthritis. 6. History of asthma. 7. Hypothyroidism. PAST SURGICAL HISTORY: 1. Adenoidectomy in 1963. 2. Appendectomy in 1972. 3. Bladder suspension in 1989. 4. Left breast biopsy, 11/16/1996. 5. Right breast biopsy, 10/04/2000 and 06/13/2014. [facility] AGE: 66 Y [address] ROOM: [id number] [place], [place] [address] LOCATION: [facility] ADMIT DATE: 03/30/2017 Consultation DISCHARGE DATE: FAMILY PHYSICIAN: Paramjit Fermin MD ATTENDING PHYSICIAN: Paramjit Fermin 6. Carpal tunnel, right and left hand. 7. Cataract surgery. 8. Cholecystectomy in 1997. 9. She has had a total abdominal hysterectomy with Stamey procedure in 1989. 10. Left knee replacement, 09/14/2006. 11. Right total knee arthroplasty, 09/05/2007. 12. Previous arthroscopic procedures done on her knees by Dr. Melendez. 13. Last knee aspiration, 03/30/2017. ALLERGIES: DEMEROL, ERYTHROMYCIN, MORPHINE, PERCODAN, AND ZITHROMAX. CURRENT MEDICATIONS: 1. Acetaminophen 650 mg 2 tablets at bedtime. 2. Advil 200 mg 4 tablets daily. 3. Just recently finished Augmentin 875 mg b.i.d. for 10 days for a sinus infection. 4. Asmanex 100 mcg 2 puffs twice a day. 5. Estrace 0.5 mg daily. 6. Fluticasone 2 squirts each nostril daily. 7. Hydralazine 50 mg b.i.d. 8. Levothyroxine 100 mcg p.o. daily. 9. Lorazepam 0.5 mg t.i.d. p.r.n. 10. Metoprolol succinate 50 mg daily. 11. Seroquel 100 mg 1-1/2 tablets at bedtime. 12. Tramadol 50 mg 2 tablets q.i.d. p.r.n. SOCIAL HISTORY: She rarely drinks. She has 2 cups of coffee a day. She has never been a smoker. Does not use illicit drugs. 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 Have 4 children and 15 grandchildren and 4 great grandchildren. REVIEW OF SYSTEMS: GENERAL: She has been very fatigued for the last 7-8 months. HEENT: Head: No history of headache. Eyes: She wears corrective lenses. Ears: No problems with hearing. Nose: She has intermittent sinus infections, history of allergies. Mouth: No gingival bleeding. Throat: Denies difficulty swallowing. PULMONARY: She does complain of a chronic cough, not improved with antibiotics. CV: She denies any exertional chest heaviness or tightness. GASTROINTESTINAL: Negative for nausea, vomiting, or diarrhea. No melena or hematochezia. No hematemesis or melena emesis. : Negative for urinary frequency or urgency. No nocturia. PATIENT'S NAME: LG [facility] AGE: 66 Y [address] ROOM: [address] [address] LOCATION: [facility] ADMIT DATE: 03/30/2017 Consultation DISCHARGE DATE: FAMILY PHYSICIAN: Paramjit Fermin MD ATTENDING PHYSICIAN: Paramjit Fermin MUSCULOSKELETAL: Severe left knee pain with history of bilateral knee replacements. PHYSICAL EXAMINATION: VITAL SIGNS: Her blood pressure is 150/75, heart rate is 82, temperature is 99.9, but her temperature max today in the last 24 hours was 100.1. She is 99.9 kg and she is 5 feet tall. GENERAL: On exam, she is alert and oriented. SKIN: Warm. HEENT: Pupils were equal, they did react briskly to light. EOMs are intact. NECK: Soft and supple. There is no lymphadenopathy. No thyromegaly. JVD is flat. LUNGS: Lung sounds were clear anteriorly, but coarse posteriorly. CV: Regular with a normal S1 and S2. I am unable to appreciate any murmur. ABDOMEN: Obese but soft. Bowel sounds are present. No tenderness was noted. No rebound noted. EXTREMITIES: 1 to 2+ edema up to her knees. Her hands are puffy. Distal pulses are 2+/4. NEUROLOGIC: Cranial nerves 2-12 were grossly intact. Her affect is appropriate and pleasant. LABORATORY DATA: ProBNP is 4032. Troponin T was normal. Hemoglobin 9.2, white count 2.9, hematocrit 28, and platelets 152. BUN 9, creatinine 0.7, sodium 138, potassium 3.9, and blood sugars are 99. ESR is 46. CRP 2.6, it was 3.4. Her iron was 54, total iron binding capacity was 211, percent saturation 20. EKG showing a regular sinus rhythm without ST or T-wave changes. ASSESSMENT: 1. Elevated ProBNP. She did receive diuretics today. We will await the echocardiogram for further evaluation. 2. Obstructive sleep apnea. She is to continue her CPAP at the current settings. 3. Fever. We will rule out endocarditis. Her knee aspirate was negative for bacteria growth. 4. Hypertension. She is to continue with her same home medications. The assessment and plan, history of present illness, and physical exam are per Dr. Martinez. Further recommendations will be forthcoming once the echocardiogram result becomes available. RODERICK MUNIZ APRN FOR SAMUEL MARTINEZ MD PATIENT'S NAME: LG [facility] AGE: 66 Y [address] ROOM: [place] [address] LOCATION: [facility] ADMIT DATE: 03/30/2017 Consultation DISCHARGE DATE: FAMILY PHYSICIAN: Paramjit Fermin MD ATTENDING PHYSICIAN: Paramjit FerminP/modl /[id number] d: 03/31/17 2248 t: 04/09/17 0953, CONSULTATION REPORT
[~2017-03-30 08:39] MED LIST changes: +ATIVAN 0.5MG0.5 MG PO; +DESYREL100 MG PO; +DURICEF (NON-500 MG PO; +FLONASE 50 MCG/16 GM NOSE; +LEVAQUIN 750 M750 MG PO; +MEDROL4 M1; +TRAMADOL HCL50 MG PO; +TURMERIC500 MG PO
[2017-03-30 09:42] LABS: HEMATOCRIT 29.9 % (33.0-46.0); MCH 28.9 pg (27.0-34.0); MCHC 33.4 gm/dL (32.0-36.5); MCV 86.4 fl (83.0-98.0); RBC 3.46 M/uL (3.50-5.50); RDW-CV 17.2 % (11.9-14.6); WBC 2.5 K/uL (4.0-11.0)
[2017-03-30 09:43] LABS: PLATELET COUNT 138 K/uL (150-450)
[2017-03-30 09:52] LABS: INR - (THERAPEUTIC) 1.11 (0.92-1.07); PROTIME 11.7 SECONDS (9.8-11.4); PTT 32 SECONDS (25-32)
[2017-03-30 10:05] LABS: ALBUMIN 3.2 gm/dL (3.5-5.0); ALK PHOS 83 IU/L (33-138); ALT 20 IU/L (12-78); ANION GAP 11.8 (10.0-19.0); AST 27 IU/L (10-40); BLOOD UREA NITROGEN 11 mg/dL (6-24); CALCIUM 8.2 mg/dL (8.5-10.5); CHLORIDE 108 mMol/L (96-110); CO2 23 mMol/L (22-32); CREATININE 0.7 mg/dL (0.5-1.1); ESTIMATED GFR (MDRD EQUATION) > 60; POTASSIUM 3.8 mMol/L (3.7-5.1); SODIUM 139 mMol/L (135-145); TOTAL BILIRUBIN 0.5 mg/dL (0.0-1.5)
[2017-03-30 10:28] LABS: ABSOLUTE NEUTROPHIL CT (ANC) 1.7 K/uL (1.8-7.8); BANDED NEUTROPHIL # 0.3 K/uL (0.0-0.1); BANDED NEUTROPHILS % 12 %; LYMPHOCYTE # 0.5 K/uL (0.8-4.0); LYMPHOCYTE % 21 %; MONOCYTE # 0.2 K/uL (0.0-1.0); SEGMENTED NEUTROPHIL # 1.4 K/uL (1.8-7.8); SEGMENTED NEUTROPHIL % 57 %
[2017-03-30 10:45] LABS: BILIRUBIN URINE NEGATIVE (NEGATIVE); BLOOD URINE NEGATIVE /UL (NEGATIVE); COLOR URINE YELLOW (YELLOW); GLUCOSE URINE NEGATIVE (NEGATIVE); KETONE URINE NEGATIVE (NEGATIVE); LEUKOCYTES URINE NEGATIVE /UL (NEGATIVE); NITRITE URINE NEGATIVE (NEGATIVE); PROTEIN URINE 30 mg/dL (NEGATIVE); TURBIDITY URINE CLEAR (CLEAR); UROBILINOGEN URINE NORMAL (NORMAL)
[2017-03-30 10:58] LABS: BACTERIA URINE FEW (NEGATIVE); MUCUS URINE 2+ (NEGATIVE); WBC URINE 0-2 #/HPF (NEGATIVE)
--- NOTE | 2017-03-30 17:05 | NUR ---
Pt is 66 y/o female admit for possible septic knee for . Pt alert and oriented x3. Resides at home with spouse. Has many allergies-see chart. Red and yellow bracelets on. Hx htn,hypercholest,asthma,sleep apnea-CPAP, edema,SOB,pneumonia,arthritis,heartburn,stress incontinence,depression, anxiety,hypothyroid. Pt states she turned wrong on her knee and started having increased pain and swelling. Came to ED where drained some bloody fluid off of her knee. She states this gave her relief.
--- NOTE | 2017-03-30 19:56 | NUR ---
Pt admitted per cart, tx to bed with assist of 2. Pt warm to touch, denies pain. Stated she has been ill intermittenly since September 2016, then 03/25/2017 twisted L knee when exiting her vehicle. Increase pain during the night, and presents to hospital for care. L knee is swollen, warm, slightly swollen. Pedal pulses +2 with pitting edema noted. Immobilizer intact. Pt states she is comfortable now, previously medicated in the ED for pain. Tx to BSC with assist of 2, voids and returns to bed. Pt requested pastoral care, notified with message left to Sr. Antunez.
--- NOTE | 2017-03-31 04:55 | NUR ---
Significant Event: Alert/oriented X3. VSS. CSM WNL. Dressing C/D/I. Fentanyl 50 mg IV at 2056, 2322, 0252; Ultram at 2154. Trazadone at HS for insomnia. Slept mostly through the night. 2 voids per bedside commode, 1 assist. Next Ancef due at 0600, will give. Saline locks left hand and right antecubital. Immobilizer on all times. Ice applied. Refused foot pumps. Follow up:
[2017-03-31 05:27] LABS: BASOPHIL % 0.3 %; EOSINOPHIL % 0.3 %; HEMOGLOBIN 9.2 g/dL (10.0-15.0); LYMPHOCYTE # 0.7 K/uL (0.8-4.0); LYMPHOCYTE % 24.3 %; MCH 28.7 pg (27.0-34.0); MCHC 32.9 gm/dL (32.0-36.5); MCV 87.2 fl (83.0-98.0); MONOCYTE # 0.2 K/uL (0.0-1.0); MONOCYTE % 5.8 %; MPV 10.2 fl (9.4-12.4); NEUTROPHIL % 68.3 %; NRBC % 0 /100WBC (0-0.00); PLATELET COUNT 152 K/uL (150-450); RBC 3.21 M/uL (3.50-5.50); RDW-CV 17.4 % (11.9-14.6); WBC 2.9 K/uL (4.0-11.0)
[2017-03-31 05:50] LABS: ANION GAP 9.9 (10.0-19.0); BLOOD UREA NITROGEN 9 mg/dL (6-24); CALCIUM 8.2 mg/dL (8.5-10.5); CHLORIDE 107 mMol/L (96-110); CO2 25 mMol/L (22-32); CREATININE 0.7 mg/dL (0.5-1.1); ESTIMATED GFR (MDRD EQUATION) > 60; POTASSIUM 3.9 mMol/L (3.7-5.1); SODIUM 138 mMol/L (135-145)
--- NOTE | 2017-03-31 14:00 | NUR ---
PT SCREENED D/T (+) MST. WT DOWN 7% SINCE DECEMBER BUT BMI REMAINS IN MORBIDLY OBESE RANGE AND INTAKE IS 100%. BASED ON CURRENT DATA, NO NUTRITION-RELATED DX IDENTIFIED. WILL ASSIST NEEDED.
--- NOTE | 2017-03-31 15:30 | NUR ---
Attempted 3 times to see patient but was busy each time.
--- NOTE | 2017-03-31 16:48 | NUR ---
Significant Event: PT ALERT AND ORIENTED. UP WITH 1 ASSIST TO THE COMMODE. ASPERATED HER KNEE YESTERDAY AND PT ON IV ANTIBOTICS. LASIX GIVEN TODAY WITH LARGE OUTPUT. TAKES TRAMADOL FOR PAIN LAST AROUND 1330. BM TODAY. SALINE LOCK IN LT HAND DC'D. SALINE TO RT ANTICUB INTACT. 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 Follow up:
--- NOTE | 2017-04-01 04:41 | NUR ---
Patient is alert and oriened x3, pleasant and cooperative, no c/o pain this shift, csm with in normal limits, did have some nausea at the begining of shift patient stated she thought it was from the pain medication, did not take any PRN pain medication this shift, has rested well, up with one assist
[2017-04-01 06:11] LABS: HEMATOCRIT 29.7 % (33.0-46.0); HEMOGLOBIN 9.5 g/dL (10.0-15.0); MCH 27.7 pg (27.0-34.0); MCV 86.6 fl (83.0-98.0); MPV 9.6 fl (9.4-12.4); PLATELET COUNT 134 K/uL (150-450); RBC 3.43 M/uL (3.50-5.50); RDW-CV 17.6 % (11.9-14.6); WBC 2.4 K/uL (4.0-11.0)
[2017-04-01 06:35] LABS: ALBUMIN 2.9 gm/dL (3.5-5.0); ANION GAP 11.6 (10.0-19.0); CALCIUM 8.3 mg/dL (8.5-10.5); CHLORIDE 103 mMol/L (96-110); CO2 26 mMol/L (22-32); CREATININE 0.8 mg/dL (0.5-1.1); ESTIMATED GFR (MDRD EQUATION) > 60; PHOSPHORUS 4.7 mg/dL (2.5-4.9); POTASSIUM 3.6 mMol/L (3.7-5.1); SODIUM 137 mMol/L (135-145)
[2017-04-01 06:37] LABS: BLOOD UREA NITROGEN 17 mg/dL (6-24)
[2017-04-01 08:30] LABS: ABSOLUTE NEUTROPHIL CT (ANC) 1.9 K/uL (1.8-7.8); BANDED NEUTROPHIL # 0.3 K/uL (0.0-0.1); BANDED NEUTROPHILS % 11 %; LYMPHOCYTE # 0.5 K/uL (0.8-4.0); LYMPHOCYTE % 20 %; SEGMENTED NEUTROPHIL # 1.6 K/uL (1.8-7.8); SEGMENTED NEUTROPHIL % 66 %
--- NOTE | 2017-04-01 16:26 | NUR ---
Significant Event: PT ALERT AND ORIENTED. UP WITH MINIMAL ASSIST TO THE COMMODE. LASIX GIVEN THIS SHIFT. MODERATE OUTPUT. PT IN ISOLATION FOR ESCHERICHIA COLI IN THE URINE. IV ANTIBOTICS CHANGED. HOME IN A FEW DAYS. Follow up:
--- NOTE | 2017-04-02 05:02 | NUR ---
Pt NPO since midnight due to having hepatic,splenic, and renal ultrasound this morning. Pt wears cpap at night. No stools. Contact isolation. IV SL. VSS. Pt denies nausea/vomiting. Pt took ultram and tylenol at bedtime.
[2017-04-02 06:15] LABS: BASOPHIL % 0.5 %; EOSINOPHIL # 0.1 K/uL (0.0-0.5); EOSINOPHIL % 2.5 %; HEMATOCRIT 28.7 % (33.0-46.0); HEMOGLOBIN 9.5 g/dL (10.0-15.0); IMMATURE GRANULOCYTE % 1.5 %; LYMPHOCYTE # 0.6 K/uL (0.8-4.0); LYMPHOCYTE % 27.2 %; MCH 28.6 pg (27.0-34.0); MCHC 33.1 gm/dL (32.0-36.5); MCV 86.4 fl (83.0-98.0); MONOCYTE # 0.1 K/uL (0.0-1.0); MONOCYTE % 5.4 %; NEUTROPHIL # (ANC) 1.3 K/uL (1.8-7.8); NEUTROPHIL % 62.9 %; NRBC % 0 /100WBC (0-0.00); RBC 3.32 M/uL (3.50-5.50); RDW-CV 17.4 % (11.9-14.6)
[2017-04-02 06:33] LABS: ANION GAP 9.7 (10.0-19.0); CALCIUM 8.1 mg/dL (8.5-10.5); CREATININE 0.9 mg/dL (0.5-1.1); POTASSIUM 3.7 mMol/L (3.7-5.1)
[2017-04-02 07:31] LABS: PLATELET COUNT 95 K/uL (150-450)
--- NOTE | 2017-04-02 18:41 | NUR ---
Significant Event: Ambulates with SBA and walker. Wears brace when using bathroom, refuses brace when using commode. Remains in isolation for ESBL in urine. Hematest today, negative. Midline catheter inserted to L) upper arm, this am. 24 hour urine collection started at 1430. Ultram 50mg last at 0830. Follow up:
--- NOTE | 2017-04-03 05:22 | NUR ---
Pt still needs one more hematest. Pt has midline to Left arm. 24 hour urine started yesterday at 1430. Bone marrow aspiration on upcoming Wednesday. Contact for E-COLI in urine. VSS. CPAP at [facility].
[2017-04-03 05:32] LABS: BASOPHIL % 0.4 %; EOSINOPHIL % 1.6 %; HEMATOCRIT 28.3 % (33.0-46.0); HEMOGLOBIN 9.3 g/dL (10.0-15.0); IMMATURE GRANULOCYTE % 0.8 %; LYMPHOCYTE # 0.6 K/uL (0.8-4.0); LYMPHOCYTE % 25.3 %; MCH 28.4 pg (27.0-34.0); MCHC 32.9 gm/dL (32.0-36.5); MCV 86.5 fl (83.0-98.0); MONOCYTE # 0.2 K/uL (0.0-1.0); MONOCYTE % 7.5 %; MPV 10.2 fl (9.4-12.4); NEUTROPHIL # (ANC) 1.6 K/uL (1.8-7.8); NEUTROPHIL % 64.4 %; NRBC % 0 /100WBC (0-0.00); RBC 3.27 M/uL (3.50-5.50); RDW-CV 17.4 % (11.9-14.6); WBC 2.5 K/uL (4.0-11.0)
[2017-04-03 05:33] LABS: PLATELET COUNT 161 K/uL (150-450)
[2017-04-03 05:57] LABS: ALBUMIN 2.9 gm/dL (3.5-5.0); ALK PHOS 68 IU/L (33-138); ALT 15 IU/L (12-78); ANION GAP 8.9 (10.0-19.0); AST 23 IU/L (10-40); BLOOD UREA NITROGEN 19 mg/dL (6-24); CALCIUM 8.2 mg/dL (8.5-10.5); CHLORIDE 106 mMol/L (96-110); CO2 27 mMol/L (22-32); CREATININE 0.7 mg/dL (0.5-1.1); POTASSIUM 3.9 mMol/L (3.7-5.1); SODIUM 138 mMol/L (135-145); TOTAL BILIRUBIN 0.5 mg/dL (0.0-1.5); TOTAL PROTEIN 6.4 g/dL (6.0-8.4)
--- NOTE | 2017-04-03 18:42 | NUR ---
Significant Event: Ambulates with SBA and walker. Refuses to wear knee immobilizer. Voids without difficulty. BM today. Remains in isolation for ESBL. Ultram 2 tabs last at 1440. Midline to L) upper arm. Follow up:
--- NOTE | 2017-04-04 02:18 | NUR ---
Significant Event: PATIENT ALERT AND ORIENTED X 3. VSS. TAKING PO AND VOIDING WITHOUT DIFFICULTY. NEED 1 MORE HEMATEST. MIDLINE INTACT TO LEFT UPPER ARM. UP AD WILLI IN ROOM. REMAINS IN CONTACT ISOLOATION FOR ESBL. CPAP AT HS. PLANS FOR BONE MARROW BX ON WEDNESDAY. PLEASANT AND COOPERTIVE WITH CARES, Follow up:
[2017-04-04 08:54] LABS: HEMATOCRIT 29.9 % (33.0-46.0); MCH 29.2 pg (27.0-34.0); MCHC 33.4 gm/dL (32.0-36.5); MCV 87.2 fl (83.0-98.0); MPV 10.4 fl (9.4-12.4); PLATELET COUNT 167 K/uL (150-450); RBC 3.43 M/uL (3.50-5.50); RDW-CV 17.4 % (11.9-14.6); WBC 1.7 K/uL (4.0-11.0)
[2017-04-04 09:17] LABS: ANION GAP 12.3 (10.0-19.0); BLOOD UREA NITROGEN 16 mg/dL (6-24); CALCIUM 8.2 mg/dL (8.5-10.5); CHLORIDE 102 mMol/L (96-110); CO2 25 mMol/L (22-32); CREATININE 0.7 mg/dL (0.5-1.1); POTASSIUM 4.3 mMol/L (3.7-5.1); SODIUM 135 mMol/L (135-145)
[2017-04-04 09:23] LABS: ABSOLUTE NEUTROPHIL CT (ANC) 1.2 K/uL (1.8-7.8); BANDED NEUTROPHIL # 0.2 K/uL (0.0-0.1); BANDED NEUTROPHILS % 14 %; LYMPHOCYTE # 0.4 K/uL (0.8-4.0); LYMPHOCYTE % 22 %; MONOCYTE # 0.1 K/uL (0.0-1.0); SEGMENTED NEUTROPHIL % 59 %
[2017-04-04 15:53] LABS: BILIRUBIN URINE NEGATIVE (NEGATIVE); BLOOD URINE NEGATIVE /UL (NEGATIVE); COLOR URINE YELLOW (YELLOW); GLUCOSE URINE NEGATIVE (NEGATIVE); KETONE URINE NEGATIVE (NEGATIVE); LEUKOCYTES URINE NEGATIVE /UL (NEGATIVE); NITRITE URINE NEGATIVE (NEGATIVE); PROTEIN URINE 30 mg/dL (NEGATIVE); SPEC GRAVITY URINE 1.015 (1.003-1.035); TURBIDITY URINE CLEAR (CLEAR); UROBILINOGEN URINE NORMAL (NORMAL)
[2017-04-04 16:03] LABS: BACTERIA URINE RARE (NEGATIVE); RBC URINE NEGATIVE #/HPF (NEGATIVE); WBC URINE 0-2 #/HPF (NEGATIVE)
--- NOTE | 2017-04-04 18:58 | NUR ---
Significant Event: Independent in room. Remains in isolation for ESBL. Midline catheter to L) upper arm, flushes well, no blood return. Ultram 100mg last at 1537. NPO after midnight for bone marrow biopsy and MAXIMO tomorrow. Follow up:
--- NOTE | 2017-04-05 03:30 | NUR ---
Significant Event: PATIENT ALERT AND ORIETNED X 3. VSS. NPO FOR MAXIMO AND BONE MARROW BX TODAY - OTHERWISE HAD BEEN TAKING PO WELL. CSM'S WNL. PAIN WELL CONTROLLED WITH ULTRAM X 1 AT 2200. UP AD WILLI IN ROOM. NO DRESSING AT THIS TIME. KNEE IMMOBILIZER ON WHEN UP - ENCOURAGE TO WEAR. MIDLINE PATENT TO LEFT UPPER ARM. CPAP AT HS. REMAINS IN CONTACT ISOLATION FOR ESBL. PLEASANT AND COOPERTIVE WITH CARES. Follow up:
[2017-04-05 04:44] LABS: HEMOGLOBIN 9.1 g/dL (10.0-15.0); MCH 28.1 pg (27.0-34.0); MCHC 32.5 gm/dL (32.0-36.5); MCV 86.4 fl (83.0-98.0); MPV 9.7 fl (9.4-12.4); PLATELET COUNT 177 K/uL (150-450); RBC 3.24 M/uL (3.50-5.50); RDW-CV 17.2 % (11.9-14.6); WBC 2.2 K/uL (4.0-11.0)
[2017-04-05 04:59] LABS: ANION GAP 9.3 (10.0-19.0); CALCIUM 8.4 mg/dL (8.5-10.5); CREATININE 0.8 mg/dL (0.5-1.1); POTASSIUM 4.3 mMol/L (3.7-5.1)
[2017-04-05 05:14] LABS: ABSOLUTE NEUTROPHIL CT (ANC) 1.2 K/uL (1.8-7.8); BANDED NEUTROPHIL # 0.2 K/uL (0.0-0.1); BANDED NEUTROPHILS % 9 %; LYMPHOCYTE # 0.9 K/uL (0.8-4.0); LYMPHOCYTE % 40 %; SEGMENTED NEUTROPHIL % 46 %
--- NOTE | 2017-04-05 15:54 | NUR ---
PATIENT HAD MAXIMO AND BONE MARROW BIOPSY TODAY. BANDAID D/T TO LEFT UPPER BUTTOCK. VSS. DENIES PAIN TO LEFT KNEE. HAVE ENCOURAGED PATIENT TO USE KNEE IMMOBILIZER, BUT SHE HAS REFUSED. AFEBRILE USING WALKER. POWERGLIDE TO LEFT UPPER ARM. BRUISE OUTER LEFT KNEE. ULTRAM THIS AFTERNOON AT 1345. LUNGS CLEAR DIMINISHED.
--- NOTE | 2017-04-06 04:25 | NUR ---
Significant Event: Alert and oriented. Vital signs stable. Lungs clear and diminished in bases. Wears CPAP at HS. Edema present to bilateral lower extremities. Had BM last night, pt reported formed and that it was "orange" in color. Voiding adequate amounts. Up ad jaskaran in room. Encourage leg immobilizer. Powerglide to L) Upper arm, flushes well but has not blood return. Ultram 100 mg given x1 at HS. Remains in contact isolation for ESBL. Has rested well this shift. Follow up:
[2017-04-06 05:33] LABS: EOSINOPHIL # 0.1 K/uL (0.0-0.5); EOSINOPHIL % 2.6 %; HEMATOCRIT 28.7 % (33.0-46.0); HEMOGLOBIN 9.2 g/dL (10.0-15.0); IMMATURE GRANULOCYTE % 0.9 %; LYMPHOCYTE # 0.6 K/uL (0.8-4.0); LYMPHOCYTE % 24.1 %; MCH 28.2 pg (27.0-34.0); MCHC 32.1 gm/dL (32.0-36.5); MONOCYTE # 0.1 K/uL (0.0-1.0); MONOCYTE % 5.2 %; MPV 9.9 fl (9.4-12.4); NEUTROPHIL # (ANC) 1.6 K/uL (1.8-7.8); NEUTROPHIL % 67.2 %; NRBC % 0 /100WBC (0-0.00); PLATELET COUNT 159 K/uL (150-450); RBC 3.26 M/uL (3.50-5.50); RDW-CV 17.2 % (11.9-14.6); WBC 2.3 K/uL (4.0-11.0)
[2017-04-06 05:50] LABS: ANION GAP 10.1 (10.0-19.0); BLOOD UREA NITROGEN 20 mg/dL (6-24); CALCIUM 8.5 mg/dL (8.5-10.5); CHLORIDE 106 mMol/L (96-110); CO2 28 mMol/L (22-32); CREATININE 0.7 mg/dL (0.5-1.1); POTASSIUM 4.1 mMol/L (3.7-5.1); SODIUM 140 mMol/L (135-145)
--- NOTE | 2017-04-06 10:15 | NUR ---
Introduced self/role to patient. She lives in [place]. She denied any barriers at home or to getting home. She has all the DME she feels she will need. She will talk to her and get back to me if there are any needs. Will also need to see tomorrow what happens with her abx. She stated her doctor told her she could do outpatient at the cancer center if needed. Will continue to follow.
[2017-04-06 16:04] LABS: ALBUMIN 3.3 g/dL (3.3-4.8); ALBUMIN 54.1 % (45.0-80.0); ALPHA 1 0.2 g/dL (0.1-0.4); ALPHA 2 0.6 g/dL (0.5-1.1); GAMMA 1.3 g/dL (0.6-1.5); PROTEIN, TOTAL 6.1 g/dL (6.1-7.8)
--- NOTE | 2017-04-06 18:52 | NUR ---
PATIENT DOING WELL. AWAITING LAST IV ANTIBIOTIC TOMORROW AM, THEN POSSIBLE DIMSISSAL. UP AD WILLI IN ROOM. ULTRAM AT 1520 FOR SHOULDER PAIN. VSS. DENIES LEFT KNEE PAIN.
--- NOTE | 2017-04-07 04:02 | NUR ---
Pt had ultram at bedtime. Midline to left upper arm, flushes good, w/o blood return. Invanze for iv antibiotic. Pt had low grade fever up to 100.0 at beginning of shift. Last time checked it was 98.4. CPAP at night. Plan is to be dismissed today after antibiotic.
[2017-04-07 05:17] LABS: EOSINOPHIL % 1.5 %; LYMPHOCYTE # 0.6 K/uL (0.8-4.0); LYMPHOCYTE % 28.3 %; MCHC 32.1 gm/dL (32.0-36.5); MONOCYTE # 0.1 K/uL (0.0-1.0); MONOCYTE % 4.5 %; MPV 9.8 fl (9.4-12.4); NEUTROPHIL # (ANC) 1.3 K/uL (1.8-7.8); NEUTROPHIL % 64.7 %; NRBC % 0 /100WBC (0-0.00); PLATELET COUNT 143 K/uL (150-450); RBC 3.22 M/uL (3.50-5.50)
[2017-04-07 05:30] LABS: BLOOD UREA NITROGEN 15 mg/dL (6-24); CALCIUM 8.2 mg/dL (8.5-10.5); CHLORIDE 104 mMol/L (96-110); CO2 26 mMol/L (22-32); CREATININE 0.7 mg/dL (0.5-1.1); SODIUM 137 mMol/L (135-145)
[2017-04-07] MEDS ORDERED: LASIX40 MG PO (15:20)
--- NOTE | 2017-04-07 15:46 | NUR ---
A - NUTRITION FOLLOW-UP HAD BONE MARROW BIOPSY 04/05. WEIGHT STABLE PER RECORD. IN ISOLATION FOR ESBL. LABS: ALB 2.9, CRP 3.22 NEW MEDS: LASIX. PT IS ON SEROQUEL. DIET: REGULAR. INTAKE 100% ALL MEALS PER RECORD. D - NO NUTRITION DIAGNOSIS AT THIS TIME. M/E - GOAL: PT WILL CONTINUE TO CONSUME >75% OF MEALS IN 5-7 DAYS.
--- NOTE | 2017-04-07 16:55 | NUR ---
D: PATIENT ALERT AND ORIENTED X3. AMBULATES AD WILLI WITH WALKER, GAIT STEADY. C/O L) SHOULDER PAIN, RATE 4-0 ON PAIN SCALE, RECEIVED ULTRAM 2 TABS AT 0741. IMMOBILIZER TO L) KNEE. REFUSED FOOT PUMPS. DISCHARGE INSTRUCTIONS REVIEWED WITH PATIENT, VERBALIZES UNDERSTANDING. ASSISTED TO VEHICLE VIA W/C AND TA ASSISTANCE. DISMISSED WITH PERSONAL BELONGINGS.
== END 2017-04-07 17:15 | disposition disaster alternative care site (69) | DRG 808 ==
LOC: GACC 08:39 → G3N 13:20
PROVIDERS: Family Medicine; Internal Medicine Hematology & Oncology; Nurse Practitioner Acute Care; ADMIT Obstetrics & Gynecology Obstetrics
PROC: 0S9D3ZX Drainage of Left Knee Joint, Percutaneous Approach, Diagnostic (ICD-10-PCS; principal; 2017-03-30)
PROC: 07DR3ZX Extraction of Iliac Bone Marrow, Percutaneous Approach, Diagnostic (ICD-10-PCS; principal; 2017-03-30)
DX: D61.818 Other pancytopenia (principal); I50.31 Acute diastolic (congestive) heart failure; Z68.41 Body mass index [BMI] 40.0-44.9, adult; M25.00 Hemarthrosis, unspecified joint; N39.0 Urinary tract infection, site not specified; C85.10 Unspecified B-cell lymphoma, unspecified site; B96.20 Unspecified Escherichia coli [E. coli] as the cause of diseases classified elsewhere; E66.01 Morbid (severe) obesity due to excess calories; I11.0 Hypertensive heart disease with heart failure; E78.5 Hyperlipidemia, unspecified; G47.33 Obstructive sleep apnea (adult) (pediatric); R50.9 Fever, unspecified; R63.4 Abnormal weight loss; R70.0 Elevated erythrocyte sedimentation rate; Z16.12 Extended spectrum beta lactamase (ESBL) resistance
CPT/HCPCS: C1751; J0690; J1335; J1940; J3010; J7030; J7050; Q9967

== ENCOUNTER → 2017-04-14 | Outpatient (CLI) | payer MEDICARE ==
[~2017-04-14] MED LIST changes: +LASIX40 MG PO
[2017-04-14 13:24] LABS: BASOPHIL % 0.3 %; EOSINOPHIL % 0.3 %; HEMATOCRIT 29.6 % (33.0-46.0); HEMOGLOBIN 9.8 g/dL (10.0-15.0); LYMPHOCYTE # 0.6 K/uL (0.8-4.0); LYMPHOCYTE % 20.6 %; MCH 28.8 pg (27.0-34.0); MCHC 33.1 gm/dL (32.0-36.5); MCV 87.1 fl (83.0-98.0); MONOCYTE # 0.2 K/uL (0.0-1.0); MONOCYTE % 7.8 %; MPV 10.7 fl (9.4-12.4); NEUTROPHIL # (ANC) 2.1 K/uL (1.8-7.8); NRBC % 0 /100WBC (0-0.00); PLATELET COUNT 141 K/uL (150-450); WBC 3.1 K/uL (4.0-11.0)
== END | disposition disaster alternative care site (69) ==
LOC: GOPD 04-09
PROVIDERS: Internal Medicine Hematology & Oncology
PROC: 0FB23ZX Excision of Left Lobe Liver, Percutaneous Approach, Diagnostic (ICD-10-PCS; principal; 2017-04-14)
DX: K75.9 Inflammatory liver disease, unspecified (principal); K76.0 Fatty (change of) liver, not elsewhere classified; K74.0 Hepatic fibrosis
CPT/HCPCS: J2001; J2250; J3010; J7030